=== PATIENT | female | born 1980 | race Caucasian/White ===

== ENCOUNTER 2016-10-29 13:00 | Emergency (ER) | payer BC, MEDICAID, OTHER ==
[~2016-10-29] VITALS: Ht 167.6 cm; Wt 61.0 kg
[~2016-10-29 13:00] MED LIST: MACR100C2 PO; OXYC-360 PO; Z.0.BCPILL PO
[2016-10-29 13:50] VITALS: BP 121/77; PULSE 86; RESP 16; TEMP 98.4; O2SAT 99
--- NOTE | 2016-10-29 14:05 | PD ---
HPI . cough, sore throat, ear pain x 2 weeks Chief Complaint: Cold / Flu Symptoms Time Seen by Provider: 14:05 Travel History International Travel<30 days: No Contact w/Intl Traveler<30days: No Traveled to known affect area: No History of Present Illness HPI 35-year-old female here with complaints of cold symptoms for over 2 weeks. Patient admits to sore throat, dry cough, ear pain R>L and postnasal drip for about 2 weeks. She says that at night she thinks she is having a fever, but she does never checked her temperature. She admits to a dry cough that seems to be more prominent now. She said she initially started off with cold symptoms that her symptoms were getting better, but they seem to be somewhat persistent. At this moment she does not have a fever. She has been very busy working [employer] week events and is now concerned since she is not getting any better. PFSH Past Medical History Blood Disorders: No Cancer: No Cardiovascular Problems: No Endocrine: No Genitourinary: No Immune Disorder: No Musculoskeletal: No Neurologic: No Psychiatric: No Reproductive: No Respiratory: No ?: Unknown LMP: COMING OFF DEPO : 1 Past Surgical History Section: Yes Gynecologic Surgery: Yes () Social History Alcohol Use: Yes (SOCIAL) Tobacco Use: No Substance Use: No Allergies-Medications (Allergen,Severity, Reaction): Coded Allergies: No Known Allergies (Verified , 10/29/16) Reported Meds & Prescriptions Reported Meds & Active Scripts Active Medrol Dosepak (Methylprednisolone) 4 Mg Dspk 4 Mg PO DIRECTED Per Pharmacist direction Zithromax Z-Peter (Azithromycin) 250 Mg Dspk 250 Mg PO DIRECTED 500 MG (2 tabs) day 1, then 1 tab days 2-5. Review of Systems General / Constitutional: Positive: Fever Eyes: No: Visual changes HENT: Positive: Sore Throat, Earache, No: Headaches, Rhinitis, Ear Discharge Cardiovascular: No: Chest Pain or Discomfort Respiratory: Positive: Cough, No: Shortness of Breath Gastrointestinal: No: Abdominal Pain Genitourinary: No: Dysuria Musculoskeletal: No: Pain Skin: No Rash Neurologic: No: Weakness Psychiatric: No: Depression Endocrine: No: Polydipsia Hematologic/Lymphatic: No: Easy Bruising Physical Exam Narrative GENERAL: AAO x 3, no acute distress, Well-nourished, well-developed patient. SKIN: Warm and dry. No visible rashes or bruising. HEAD: Normocephalic and atraumatic. EYES: No scleral icterus. No injection or drainage. allergic shiners b/l eye ENT: No nasal drainage noted. Mucous membranes pink. Airway patent. PND moderate. Fluid b/l TM no evidence of bulging or erythema NECK: Supple, trachea midline. No JVD. CARDIOVASCULAR: Regular rate and rhythm without murmurs, gallops, or rubs. RESPIRATORY: Breath sounds equal bilaterally. No accessory muscle use. No rhonchi or rales. Dry cough during examination GASTROINTESTINAL: Abdomen soft, non-tender, nondistended. EXTREMITIES: No cyanosis or edema. BACK: Nontender without obvious deformity. No CVA tenderness. PSYCH: AAO x 3, normal affect. Data Data Last Documented VS Vital Signs Date Time Temp Pulse Resp B/P Pulse Ox O2 Delivery O2 Flow Rate FiO2 10/29/16 14:05 16 99 Room Air 10/29/16 13:50 98.4 86 121/77 MDM Medical Decision Making Medical Screen Exam Complete: Yes Emergency Medical Condition: Yes Medical Record Reviewed: Yes Differential Diagnosis Sinusitis, bronchitis, less likely pneumonia Narrative Course 35-year-old female here with complaints of cold symptoms for over 2 weeks. Patient admits to sore throat, dry cough, ear pain R>L and postnasal drip for about 2 weeks. She says that at night she thinks she is having a fever, but she does never checked her temperature. She admits to a dry cough that seems to be more prominent now. She said she initially started off with cold symptoms that her symptoms were getting better, but they seem to be somewhat persistent. At this moment she does not have a fever. She has been very busy working bike week events and is now concerned since she is not getting any better. Patient seen and examined. She does have findings consistent with acute sinusitis. Due to her coughing also treated for acute bronchitis. Recommend a course of antibiotics and prednisone. Patient provided with azithromycin to cover pneumonia. Advise follow-up with primary care provider. Patient verbalized understanding of instructions, questions were answered, and thanked me for their care. I advised them if their condition worsens, please return to the nearest emergency room for further care. Diagnosis Primary Impression: Acute sinusitis Qualified Code: J01.90 - Acute sinusitis, recurrence not specified, unspecified location Additional Impressions: Acute bronchitis Qualified Code: J20.9 - Acute bronchitis, unspecified organism Mixed rhinitis Patient Instructions: Acute Bronchitis (ED), General Instructions, Sinusitis ( ED) Additional Instructions: Please return to emergency department if your symptoms return or worsen. Follow up with your primary care provider. Take medications as prescribed. As we discussed the cough can last 6-8 weeks. Take medications as prescribed. If you are a smoker, try to quit. Follow up with your primary care provider. If you develop sudden onset or worsening of shortness or breath, please go to the nearest emergency room. Med/Other Pt SpecificInfo: Prescription(s) given Scripts Methylprednisolone Dosepak (Medrol Dosepak)4 Mg Dspk4 Mg PO DIRECTED #1 DSPK Ref 0 Per Pharmacist direction Prov:Alicia Wayne MD 10/29/16 Azithromycin (Zithromax Z-Peter)250 Mg [id number] Mg PO DIRECTED #1 DSPK Ref 0 500 MG (2 tabs) day 1, then 1 tab days 2-5. Prov:Alicia Wayne MD 10/29/16 Disposition: 01 DISCHARGE HOME Condition: Stable Norma Salcedo Oct 29, 2016 14:05
[2016-10-29] MEDS ORDERED: ZITHTAB PO (14:10)
[2016-10-29] MEDS ORDERED: MEDR4PAK PO (14:10)
[2016-12-13] MEDS ORDERED: AVIATAB PO (09:19)
== END 2016-10-29 14:15 | disposition home or self-care (01) ==
LOC: PHEFT 13:00
DX: J01.90 Acute sinusitis, unspecified (principal); J20.9 Acute bronchitis, unspecified
CPT/HCPCS: 99283

== ENCOUNTER 2018-01-05 12:32 | Emergency (ER) | payer SELFPAY ==
[~2018-01-05] VITALS: Ht 167.6 cm; Wt 60.0 kg
[~2018-01-05 12:32] MED LIST changes: +AVIATAB PO; -MACR100C2 PO; -OXYC-360 PO; -Z.0.BCPILL PO
[2018-01-05 12:43] VITALS: BP 127/66; PULSE 73; RESP 16; TEMP 98.3; O2SAT 98
[2018-01-05] MEDS ORDERED: IBUP1TAB7 PO (13:58)
--- NOTE | 2018-01-05 13:58 | PD ---
HPI Chief Complaint: Musculoskeletal Complaint Time Seen by Provider: 13:49 Travel History International Travel<30 days: No Contact w/Intl Traveler<30days: No Traveled to known affect area: No History of Present Illness HPI 37 year old female right foot pain. She denies any recent injury or trauma. She reports several years ago she tore tendon within the foot and this feels similar. She has pain with weightbearing range of motion. Slightly relieved with rest. PFSH Past Medical History Blood Disorders: No Cancer: No Cardiovascular Problems: No Endocrine: No Genitourinary: No Immune Disorder: No Musculoskeletal: No Neurologic: No Psychiatric: No Reproductive: No Respiratory: No Influenza Vaccination: No ?: Not LMP: LAST WEEK : 1 Para: 1 Past Surgical History Appendectomy: Yes Section: Yes Eye Surgery: Yes (Lasik) Gynecologic Surgery: Yes () Other Surgery: Yes Social History Alcohol Use: Yes (1 glass wine daily) Tobacco Use: No Substance Use: No Allergies-Medications (Allergen,Severity, Reaction): Coded Allergies: No Known Allergies (Verified Adverse Reaction, Unknown, 01/05/18) Reported Meds & Prescriptions Reported Meds & Active Scripts Active Ibuprofen 800 Mg Tab 800 Mg PO Q6HR PRN Aviane (Levonorgestrel-Ethinyl Estradiol) 0.1-20 Mg-Mcg Tab 1 Tab PO DAILY Review of Systems Except as stated in HPI: all other systems reviewed are Neg General / Constitutional: No: Fever Eyes: No: Visual changes HENT: No: Headaches Cardiovascular: No: Chest Pain or Discomfort Respiratory: No: Shortness of Breath Gastrointestinal: No: Abdominal Pain Physical Exam Narrative GENERAL: Alert and well-appearing 37-year-old female. SKIN: Warm and dry. HEAD: Normocephalic. Atraumatic. EYES: No injection or drainage. NECK: Supple GASTROINTESTINAL: nondistended. MUSCULOSKELETAL: No cyanosis, or edema. Right foot: Mild tenderness to the arch of the foot. No bony tenderness. No obvious deformity. No swelling. Can freely wiggle the toes. Palpable DP pulse. Normal sensation. Brisk cap refill. Data Data Last Documented VS Orders Orders Siva Bandage (01/05/18 13:59) Crutches (01/05/18 13:59) Ibuprofen (Motrin) (01/05/18 14:00) MDM Medical Decision Making Medical Screen Exam Complete: Yes Emergency Medical Condition: Yes Differential Diagnosis midfoot sprain, tendon injury, fx Narrative Course 37 year old female with midfoot sprain. the extremity is neurovascularly intact. xray offered & patient declined. She is to follow up with podiatry. Diagnosis Primary Impression: Foot sprain Qualified Codes: S93.601A - Unspecified sprain of right foot, initial encounter Referrals: Suha Jay DPM [employer] Additional Instructions: Ibuprofen 800 mg every 6 hours as needed for pain. Siva wrap and crutches until weightbearing is possible. Follow-up with podiatry Scripts Ibuprofen (Ibuprofen) 800 Mg Tab 800 MG PO Q6HR Y for PAIN, #40 TAB 0 Refills Prov: Germania John 01/05/18 Disposition: 01 DISCHARGE HOME Condition: Stable Germania John January 05, 2018 13:58
[2018-01-05] MEDS ORDERED: IBUPROFEN 800 MG TAB PO ONE (14:00)
== END 2018-01-05 14:10 | disposition home or self-care (01) ==
LOC: PHED 12:32 → PHEFT 14:10
DX: S93.601A Unspecified sprain of right foot, initial encounter (principal); X58.XXXA Exposure to other specified factors, initial encounter
CPT/HCPCS: 99283; E0113